=== PATIENT | female | born 1980 | race Caucasian/White ===

== ENCOUNTER 2018-06-20 23:39 | Inpatient (IN) | payer BC ==
[~2018-06-20 23:39] MED LIST: ROPIVACAINE 5MG/ML 20ML VIAL ONE; SODIUM CHLORIDE 0.9% 100 ML BAG ONE; fentaNYL (PF) 50 MCG/ML 5 ML AMP ONE
[2018-06-21] MEDS ORDERED: TERBUTALINE 1 MG/ML VIAL SQ PRN (00:19)
[2018-06-21] MEDS ORDERED: OXYTOCIN 10 UNIT/ML 1 ML VIAL IM PRN (00:19)
[2018-06-21] MEDS ORDERED: CARBOPROST TROMETHAMINE 250 MCG/ML 1 ML AMP IM PRN (00:19)
[2018-06-21] MEDS ORDERED: METHYLERGONOVINE 0.2 MG/ML 1 ML AMP IM PRN (00:19)
[2018-06-21] MEDS ORDERED: LIDOCAINE 0.5% (PF) 5 MG/ML (50 ML SDV) SQ PRN (00:19)
[2018-06-21] MEDS ORDERED: OXYTOCIN 30 UNITS/500 ML NS 30 UNIT in SALINE 1 500ML.BAG IV SCH (00:30)
[2018-06-21] MEDS ORDERED: AMPICILLIN 2,000 MG in SODIUM CHLORIDE 0.9% 100 ML IVPB ONE (00:30)
[2018-06-21 00:39] LABS: Basophils % (A) 0 %; Eosinophils # (A) 0.3 k/uL (0-0.7); Eosinophils % (A) 3 %; HCT 33.9 % (34.0-46.0); HGB 11.5 gm/dL (11.4-16.0); Lymphocytes # (A) 1.9 k/uL (1.0-4.8); Lymphocytes % (A) 19 %; MCH 30.9 pg (25.0-35.0); MCHC 34.1 g/dL (31.0-37.0); MCV 90.7 fL (80.0-100.0); Mean Platelet Volume 8.8; Monocytes # (A) 0.6 k/uL (0-1.0); Monocytes % (A) 6 %; Neutrophils # (A) 7.1 k/uL (1.3-7.7); Neutrophils % (A) 71 %; Platelet Count 112 k/uL (150-450); RBC 3.74 m/uL (3.80-5.40); RDW 14.2 % (11.5-15.5)
[2018-06-21] MEDS: LACTATED RINGERS 1,000 ML IV SCH ×2 (00:50→04:32)
[2018-06-21 01:12] VITALS: RESP 16; BMI 43.6
[2018-06-21] MEDS ORDERED: BUTORPHANOL 1 MG/ML 1 ML VIAL IV PRN (03:19)
[2018-06-21] MEDS ORDERED: AMPICILLIN 1,000 MG in SODIUM CHLORIDE 0.9% 50 ML IVPB SCH (04:30)
--- NOTE | 2018-06-21 06:06 | P.HPOB ---
History of Present Illness H&P Date: 06/21/18 Chief Complaint: Spontaneous rupture of membranes This is a 37-year-old female 2 para 1 who presents with complaints of spontaneous rupture of membranes prior to arrival with clear fluid. Upon admission she was feeling some mild contractions. care has been with Dr. Pratt and has been uncomplicated per patient. She has been on a baby aspirin daily due to her age. labs: GC/Chlamydia/Trichomonas-negative Hepatitis B surface antigen-negative RPR-nonreactive Rubella-immune Blood type-O+ Antibody screen-negative HIV-nonreactive Hemoglobin-13.1 Toxoplasma screen-negative Random glucose-74 One hour Glucola-157 Three-hour Glucola-within normal limits Obstetrical history: . History of 1 vaginal delivery at term. Review of Systems Constitutional: Denies chills, Denies fever Eyes: denies blurred vision, denies pain Ears, nose, mouth and throat: Denies headache, Denies sore throat Cardiovascular: Denies chest pain, Denies shortness of breath Respiratory: Denies cough Gastrointestinal: Reports abdominal pain (Irregular contractions) Genitourinary: Reports pelvic pain, Reports Musculoskeletal: Reports low back pain Integumentary: Denies pruritus, Denies rash Neurological: Denies numbness, Denies weakness Psychiatric: Denies anxiety, Denies depression Past Medical History Past Medical History: Asthma Additional Past Medical History / Comment(s): seasonal allergy induced History of Any Multi-Drug Resistant Organisms: None Reported Past Surgical History: Appendectomy, Orthopedic Surgery Additional Past Surgical History / Comment(s): screws in ankle Past Anesthesia/Blood Transfusion Reactions: Postoperative Nausea & Vomiting (PONV) Past Psychological History: No Psychological Hx Reported Smoking Status: Never smoker Past Alcohol Use History: None Reported Past Drug Use History: None Reported - Past Family History Mother Family Medical History: Hypertension Medications and Allergies Home Medications Medication Instructions Recorded Confirmed Type Pnv No.95/Ferrous Fum/Folic AC 1 each PO DAILY 06/20/18 06/20/18 History [ Multivitamin Tablet] Aspirin [Adult Low Dose Aspirin EC] 81 mg PO DAILY 06/21/18 06/21/18 History Allergies Allergy/AdvReac Type Severity Reaction Status Date / Time Sulfa (Sulfonamide Allergy Unknown Verified 06/21/18 03:54 Antibiotics) Childhood Exam Osteopathic Statement: *. No significant issues noted on an osteopathic struct ural exam other than those noted in the History and Physical/Consult. Vital Signs Temp Pulse Resp BP 06/21/18 00:18 97.3 F L 104 H 16 139/83 06/20/18 23:51 97.3 F L 104 H 16 139/83 Intake and Output 06/20/18 06/20/18 06/21/18 14:59 22:59 06:59 Other: Weight 115.212 kg HEENT: Within normal limits Heart: Regular rate and rhythm Lungs: Clear to auscultation bilaterally Abdomen: Cervix: On admission is 1 cm/70%/-2 station with positive clear fluid noted. Positive amnisure was noted. heart tones: Reactive Contractions: Irregular Extremities: Negative Homans Results Result Diagrams: 06/21/18 00:30 Abnormal Lab Results - Last 24 Hours (Table) 06/21/18 Range/Units 00:30 RBC 3.74 L (3.80-5.40) m/uL Hct 33.9 L (34.0-46.0) % Plt Count 112 L (150-450) k/uL Assessment and Plan (1) 39 weeks gestation of Current Visit: Yes Status: Acute Code(s): Z3A.39 - 39 WEEKS GESTATION OF SNOMED Code(s): 56475059 (2) Spontaneous rupture of membranes Current Visit: Yes Status: Acute Code(s): OEH2706 - SNOMED Code(s): 015495805 Plan: Proceed with oxytocin augmentation of labor. Epidural anesthesia when desired. Expectant management.
--- NOTE | 2018-06-21 06:44 | P.PROBDLV ---
Vaginal Delivery Note - . Vaginal Delivery Note: Patient reached complete dilation after oxytocin augmentation of labor and epidural anesthesia. Once reaching complete dilation, she began pushing. Infant's head came to a crown. With one further push, the 's head delivered across the perineum in a right occiput anterior lie. 's head then restituted to SUE when trying to deliver the anterior shoulder, and then back to DONAVON delivering the left anterior shoulder. Nuchal cord 2 was reduced around the 's head. Nose and mouth were bulb suctioned after delivery. was placed on mother's abdomen with delivery. Cord was clamped and cut. Infant was taken to warmer for evaluation. A viable male infant was noted with scores of 9 at 1 minute and 9 at 5 minutes and infant weight was 9 lbs. 2 oz. Cord blood was obtained secondary to O+ blood type. Placenta delivered shortly thereafter, intact, with a three-vessel cord. There was noted to be a marginal cord insertion also. Uterus contracted well after oxytocin was given and uterine massage was carried out. Inspection of the perineum revealed a small second degree perineal laceration. This area was anesthetized with 1% lidocaine and then sutured with 3-0 and 2-0 Vicryl suture in the usual multilayer fashion. Estimated blood loss is approximately 200 mL's. Mother and infant are in stable condition.
[2018-06-21] MEDS ORDERED: diphenhydrAMINE 25 MG CAP PO PRN (07:07)
[2018-06-21] MEDS ORDERED: BENZOCAINE/MENTHOL SPRAY 1 GM/SPRAY AEROSOL TOPICAL PRN (07:07)
[2018-06-21] MEDS ORDERED: diphenhydrAMINE 50 MG/ML 1 ML VIAL IVP PRN ×2 (07:07)
[2018-06-21] MEDS ORDERED: OXYTOCIN 20 UNITS/1000 ML NS 1,000 ML IV SCH (07:07)
[2018-06-21] MEDS ORDERED: ACETAMINOPHEN TAB 325 MG TAB PO PRN (07:07)
[2018-06-21] MEDS ORDERED: WITCH HAZEL 1 EACH MED..PAD TOPICAL PRN (07:07)
[2018-06-21] MEDS ORDERED: ZOLPIDEM 5 MG TAB PO PRN (07:07)
[2018-06-21] MEDS ORDERED: HYDROCORTISONE 2.5% RECTAL CREAM 30 GM TUBE RECTAL PRN (07:07)
[2018-06-21] MEDS ORDERED: SIMETHICONE 80 MG CHEWABLE PO PRN (07:07)
[2018-06-21] MEDS ORDERED: diphenhydrAMINE 50 MG CAP PO PRN (07:07)
[2018-06-21] MEDS ORDERED: LANOLIN CREAM 5 GM TUBE TOPICAL PRN (07:07)
[2018-06-21] MEDS: IBUPROFEN 600 MG TAB PO PRN (16:41)
[2018-06-21] MEDS: SENNOSIDES-DOCUSATE SODIUM 1 EACH TAB PO SCH (19:36)
[2018-06-22 06:58] LABS: Basophils % (A) 0 %; Eosinophils # (A) 0.2 k/uL (0-0.7); Eosinophils % (A) 2 %; HCT 26.9 % (34.0-46.0); Lymphocytes # (A) 1.9 k/uL (1.0-4.8); Lymphocytes % (A) 21 %; MCH 30.4 pg (25.0-35.0); MCHC 32.9 g/dL (31.0-37.0); MCV 92.6 fL (80.0-100.0); Mean Platelet Volume 8.4; Monocytes # (A) 0.4 k/uL (0-1.0); Monocytes % (A) 4 %; Neutrophils # (A) 6.2 k/uL (1.3-7.7); Neutrophils % (A) 70 %; Platelet Count 101 k/uL (150-450); RBC 2.91 m/uL (3.80-5.40); RDW 13.9 % (11.5-15.5); WBC 8.9 k/uL (3.8-10.6)
[2018-06-22 07:00] LABS: HGB 8.9 gm/dL (11.4-16.0)
[2018-06-22] MEDS: SENNOSIDES-DOCUSATE SODIUM 1 EACH TAB PO SCH ×2 (07:35→08:01)
[2018-06-22] MEDS: IBUPROFEN 600 MG TAB PO PRN (07:35)
[2018-06-22 08:01] VITALS: BP 125/74; PULSE 104; TEMP 97.8
--- NOTE | 2018-06-22 09:10 | P.DS ---
Providers Date of admission: 06/20/18 23:59 Expected date of discharge: 06/22/18 Attending physician: Meri Pratt Primary care physician: Meri Pratt - Discharge Diagnosis(es) (1) 39 weeks gestation of Current Visit: Yes Status: Acute (2) Spontaneous rupture of membranes Current Visit: Yes Status: Acute Hospital Course: This is a 37-year-old female 2 para 1 at 39-0/7 weeks who presented for spontaneous rupture membranes area she underwent oxytocin augmentation of labor and delivered vaginally a viable male on 06/21/2018. Her course has been uncomplicated. She is breast-feeding. Lochia is decreasing. Her pain is fairly well controlled with ibuprofen. Vital signs are stable. Abdomen is soft with fundus firm and nontender. Extremities show negative Homans. Impression is status post vaginal delivery day #1. Plan is to discharge home today. Routine instructions are given. She is advised follow-up in the office in [address] Pratt. She is advised to call the office if she has any further questions or concerns prior to her appointment time. Procedures: Oxytocin augmentation of labor Spontaneous vaginal delivery of a viable male on 06/22/2018 Patient Condition at Discharge: Stable Plan - Discharge Summary New Discharge Prescriptions: New Ibuprofen [Motrin] 600 mg PO Q6HR PRN #60 tab PRN Reason: Mild Pain Or Fever >= 100.5 Continue Pnv No.95/Ferrous Fum/Folic AC [ Multivitamin Tablet] 1 each PO DAILY Discontinued Aspirin [Adult Low Dose Aspirin EC] 81 mg PO DAILY Discharge Medication List Pnv No.95/Ferrous Fum/Folic AC [ Multivitamin Tablet] 1 each PO DAILY 06/20/18 [History] Ibuprofen [Motrin] 600 mg PO Q6HR PRN #60 tab 06/22/18 [Rx] Follow up Appointment(s)/Referral(s): Meri Pratt DO [Primary Care Provider] - 6 Weeks Activity/Diet/Wound Care/Special Instructions: Instructions 1. Do not begin any exercise program for 3 weeks. 2. Do not resume sexual relations for 3 weeks or longer if uncomfortable. 3. You may take tub baths or showers at any time. 4. You may use tampons if desired after 3 weeks. 5. Keep the area of episiotomy (stitches) clean and dry. 6. If you are not nursing, wear a good fitting, supportive bra during the day and limit fluid intake for at least 1 week to prevent breast engorgement. 7. Call the office, [phone], within the next week to make appointment for your 6 week checkup if it has not already been made. 8. Report any of the following occurrences to the doctor promptly: a. Heavy, excessive bleeding b. Chills, fever c. Burning or frequency of urination d. Pain or redness and breasts if nursing e. Increasing pain or swelling in episiotomy (stitches). In addition to the above instructions, the following additional should be followed: 1. No heavy lifting or straining (exercising) until after 6 week checkup. 2. Keep abdominal incision clean and dry: You may wear a dressing if more comfortable. 3. Make office appointment for 10 days after going home or as instructed by her doctor. Discharge Disposition: HOME SELF-CARE
== END 2018-06-22 12:50 | disposition home or self-care (01) | DRG 807 ==
LOC: FBPOP 23:39 → 4FBP 23:59
PROVIDERS: ADMIT Obstetrics & Gynecology; ATTEND Obstetrics & Gynecology
PROC: 10E0XZZ Delivery of Products of Conception, External Approach (ICD-10-PCS; principal; 2018-06-20)
PROC: 3E0R3NZ Introduction of Analgesics, Hypnotics, Sedatives into Spinal Canal, Percutaneous Approach (ICD-10-PCS; principal; 2018-06-20)
PROC: 0KQM0ZZ Repair Perineum Muscle, Open Approach (ICD-10-PCS; principal; 2018-06-20)
PROC: 00HU33Z Insertion of Infusion Device into Spinal Canal, Percutaneous Approach (ICD-10-PCS; principal; 2018-06-20)
DX: O70.1 Second degree perineal laceration during delivery (principal); Z37.0 Single live birth; O69.81X0 Labor and delivery complicated by cord around neck, without compression, not applicable or unspecified; Z3A.39 39 weeks gestation of pregnancy; Z79.82 Long term (current) use of aspirin; Z82.49 Family history of ischemic heart disease and other diseases of the circulatory system
CPT/HCPCS: 59025; 84112; 85025; 86850; 86900; 86901; 88307; 99213